=== PATIENT | female | born 1945 | race Caucasian/White ===

== ENCOUNTER 2018-04-10 11:43 | Day surgery (SDC) | payer OTHER ==
[~2018-04-10] VITALS: Ht 162.6 cm; Wt 79.4 kg
[~2018-04-10 11:43] MED LIST: ACIPHEX20 MG PO; ALLEGRA ALLERG180 MG PO; CALTRATE 600 +1 EAC1 PO; CEVIMELINE HCL30 MG PO; CRESTOR10 MG PO; DICLOFENAC SOD100 G1 TP; DYMISTA NASAL S23 GM BOTH NARES; FLECAINIDE ACET50 MG PO; HYDROCHLOROTH12.5 M3 PO; IRBESARTAN150 MG PO; LORAZEPAM0.5 MG PO; PREVIDENT 5000100 ML DT; SERTRALINE HCL100 MG PO; TICALAST NASAL1 EACH BOTH NARES; VERAPAMIL HCL120 MG PO; XARELTO20 MG PO
== END 2018-04-10 15:05 | disposition home or self-care (01) ==
LOC: CATH 11:43
PROC: 0JPT32Z Removal of Monitoring Device from Trunk Subcutaneous Tissue and Fascia, Percutaneous Approach (ICD-10-PCS; principal; 2018-04-10)
DX: Z45.09 Encounter for adjustment and management of other cardiac device (principal); I48.0 Paroxysmal atrial fibrillation; R94.31 Abnormal electrocardiogram [ECG] [EKG]; G47.30 Sleep apnea, unspecified; R55 Syncope and collapse; Z79.01 Long term (current) use of anticoagulants
CPT/HCPCS: J2250; J3010